=== PATIENT | male | born 1970 | race Caucasian/White ===

== ENCOUNTER 2018-02-17 14:44 | Emergency (ER) | payer MEDICAID, OTHER ==
[~2018-02-17] VITALS: Ht 172.7 cm; Wt 150.0 kg
[~2018-02-17 14:44] MED LIST: ACET-76 PO; ASPI-621 PO; DIVA-68 PO; FLUT1BLS INH; FURO-93 PO; GABA100C PO; GABA300C10 PO; INSU100C5 SQ-INSULIN; INSU100V14 SQ; INSU100V8 SQ; LISI-167 PO; OLAN5TAB9 PO; POLY17PO5 PO; PRED5TAB PO
[2018-02-17 14:55] VITALS: BP 111/64
[2018-02-17] MEDS ORDERED: OLAN2.5T3 PO (15:00)
[2018-02-17] MEDS ORDERED: INSULIN REGULAR 100 UNITS/ML, 3ML VIAL SQ-INSULIN ONE ×2 (15:30)
== END 2018-02-17 17:05 | disposition home or self-care (01) ==
LOC: ED 16:40
DX: M16.0 Bilateral primary osteoarthritis of hip (principal); E11.65 Type 2 diabetes mellitus with hyperglycemia; I10 Essential (primary) hypertension; F31.9 Bipolar disorder, unspecified; F25.9 Schizoaffective disorder, unspecified; F43.10 Post-traumatic stress disorder, unspecified
CPT/HCPCS: 72170; 82962; 96372; 99284